=== PATIENT | female | born 1975 | race African-American/Black ===

== ENCOUNTER 2018-08-22 09:33 | Emergency (ER) | payer BC ==
[~2018-08-22] VITALS: Ht 170.2 cm; Wt 90.9 kg
[2018-08-22 10:49] LABS: BASOPHILS % (AUTO) 0.2 % (0-1); EOSINOPHILS # (AUTO) 0.1 X10'3 (0-0.9); EOSINOPHILS % (AUTO) 1.4 % (0-6); HEMATOCRIT 40.3 % (35.0-45.0); HEMOGLOBIN 13.4 g/dl (12.0-16.0); LYMPHOCYTES # (AUTO) 1.2 X10'3 (1.1-4.8); LYMPHOCYTES % (AUTO) 22.4 % (21-51); MEAN CORPUSCULAR HEMOGLOBIN 26.1 PG (27.0-31.0); MEAN CORPUSCULAR HGB CONC 33.3 g/dL (33.0-36.5); MEAN CORPUSCULAR VOLUME 78.4 FL (78-98); MEAN PLATELET VOLUME 9.1 FL (7.4-10.4); MONOCYTES # (AUTO) 0.6 X10'3 (0-0.9); MONOCYTES % (AUTO) 10.9 % (2-12); NEUTROPHILS # (AUTO) 3.5 X10'3 (1.8-7.7); NEUTROPHILS % (AUTO) 65.1 % (42-75); PLATELET COUNT 250 X10'3 (140-440); RED BLOOD COUNT 5.14 X10'6 (4.20-5.60); WHITE BLOOD COUNT 5.4 X10'3 (4.5-11.0)
[2018-08-22 10:58] LABS: ALANINE AMINOTRANSFERASE 28 U/L (12-78); ALBUMIN 3.9 G/DL (3.4-5.0); ALKALINE PHOSPHATASE 95 IU/L (46-116); ANION GAP 10 (8-16); ASPARTATE AMINO TRANSFERASE 11 U/L (10-37); BILIRUBIN,TOTAL 0.7 MG/DL (0.1-1.0); BLOOD UREA NITROGEN 10 MG/DL (7-18); BUN/CREATININE RATIO 13.3 (6.6-38.0); CALCIUM 9.6 MG/DL (8.5-10.1); CHLORIDE 102 MMOL/L (99-107); CREATININE 0.75 MG/DL (0.40-0.90); GLUCOSE 107 MG/DL (70-104); POTASSIUM 3.5 MMOL/L (3.5-5.1); SODIUM 138 MMOL/L (135-145); TOTAL CARBON DIOXIDE 26.3 MMOL/L (24-32); TOTAL PROTEIN 7.7 G/DL (6.4-8.2); eGFR > 90 ML/MIN
--- NOTE | 2018-08-22 11:00 | NUR ---
PT IRRITATED, STATED IF SHE WASN'T GOING TO GET MEDICINE FOR PAIN THEN SHE'D JUST GO HOME
[2018-08-22] MEDS ORDERED: LORazepam 2 mg/ml vial IV ONE (11:25)
[2018-08-22] MEDS ORDERED: metoclopramide 5 mg/ml inj IV ONE (11:25)
[2018-08-22] MEDS ORDERED: diphenhydrAMINE 50 mg/ml inj IV ONE (11:25)
[2018-08-22] MEDS ORDERED: glycopyrrolate 0.2mg/ml inj IM ONE (11:25)
[2018-08-22] MEDS ORDERED: ketorolac trometh. 30mg/ml inj. IV ONE (11:25)
[2018-08-22] MEDS ORDERED: normal saline 1000ML IV soln IVB ONE ×2 (11:25)
--- NOTE | 2018-08-22 12:05 | NUR ---
PT REFUSED ATIVAN DOSE, STATED SHE DIDN'T FEEL COMFORTABLE AND WAS GOING TO GO HOME, "FROM THE PAIN"
[2018-08-22 13:07] LABS: URINE HCG NEGATIVE (NEG)
[2018-08-22 13:36] LABS: CLARITY,URINE CLEAR (Clear); COLOR,URINE YELLOW (Yellow); GLUCOSE, URINE NEGATIVE (Neg); KETONES,URINE NEGATIVE (Neg); LEUKOCYTE ESTERASE ,URINE SMALL (Neg); NITRITES, URINE NEGATIVE (Neg); OCCULT BLOOD,URINE TRACE-INTACT (Neg); PROTEIN,URINE NEGATIVE (Neg); UROBILINOGEN,URINE 0.2 E.U/dL (0.2-1.0)
[2018-08-22 13:37] LABS: UA COLLECTION TYPE CLN CATCH MIDSTREAM
[2018-08-22 13:49] LABS: SQUAMOUS EPITHELIAL CELL,UR MODERATE /LPF (FEW)
[2018-08-22 13:50] LABS: RBC,URINE 0-2 /HPF (0-2); WBC,URINE 0-4 /HPF (0-4)
[2018-08-22 13:51] LABS: BACTERIA,URINE FEW /HPF (Neg)
[2018-08-22] MEDS ORDERED: CEPH500C5 PO (13:51)
[2018-08-22] MEDS ORDERED: DICY10CA88 PO (13:51)
[2018-08-22] MEDS ORDERED: ONDA4TAB12 PO ×2 (13:51→13:56)
[2018-08-22 13:57] VITALS: BP 142/90
== END 2018-08-22 14:11 | disposition home or self-care (01) ==
LOC: ER 09:34
DX: R10.84 Generalized abdominal pain (principal); R11.2 Nausea with vomiting, unspecified
CPT/HCPCS: 36415; 80053; 81001; 81025; 85025; 85610; 87088; 96372; 96374; 96375; 99283; J1200; J1885; J2060; J2765; J7030; 96361; J3490